=== PATIENT | female | born 1940 | race Caucasian/White ===

== ENCOUNTER 2024-03-06 11:16 | Emergency (ER) | payer MEDICARE, SELFPAY ==
[2024-03-06] VITALS (7 sets, daily range): BP systolic 115–165; BP diastolic 65–97; PULSE 60–75; RESP 14–28; TEMP 36.4; O2SAT 95–99
--- NOTE | 2024-03-06 11:35 | ED.GENADULT ---
HPI - General Adult General Chief complaint: Nausea/Vomiting/Diarrhea Stated complaint: nervous, vomiting Time Seen by Provider: 03/06/24 11:21 History of Present Illness HPI narrative: 83-year-old female with history of chronic kidney disease presents to the emergency department for evaluation for persistent nausea and vomiting since last night. Patient does have dementia at baseline. Upon arrival to the emergency department patient states she has nausea but denies any abdominal pain. Patient states she does have some lower back pain from a fall approximately 6 weeks ago, patient was worked up for this fall and patient is currently doing physical therapy for this. Patient denies any new falls or injuries. Patient was tearful due to anxiety upon arrival. Patient's family is present. Related Data Home Medications Medication Instructions Recorded Confirmed allopurinol 300 mg tablet 300 mg PO DAILY 02/10/23 02/10/23 calcium carbonate (Calcium 600) 600 mg PO DAILY 02/10/23 02/10/23 carvedilol 6.25 mg tablet 6.25 mg PO Q12H 02/10/23 02/10/23 cholecalciferol (vitamin D3) 50 50 mcg PO DAILY 02/10/23 02/10/23 mcg (2,000 unit) capsule (Vitamin D3) empagliflozin 25 mg tablet 25 mg PO DAILY 02/10/23 02/10/23 (Jardiance) glipizide 10 mg tablet 10 mg PO DAILY 02/10/23 02/10/23 levothyroxine 88 mcg capsule 88 mcg PO DAILY 02/10/23 02/10/23 mecobalamin (vitamin B12) 1,000 1,000 mcg sublingual DAILY 02/10/23 02/10/23 mcg disintegrating tablet,sublingual omeprazole 20 mg capsule,delayed 20 mg PO DAILY 02/10/23 02/10/23 release paroxetine HCl 20 mg tablet 20 mg PO DAILY 02/10/23 02/10/23 simvastatin 20 mg tablet 20 mg PO DAILY 02/10/23 02/10/23 verapamil 180 mg 24 hr 180 mg PO DAILY 02/10/23 02/10/23 capsule,extended release Allergies Allergy/AdvReac Type Severity Reaction Status Date / Time No Known Allergies Allergy Verified 03/06/24 11:20 Review of Systems Review of Systems: All systems reviewed & are unremarkable except as noted in HPI and below PMFSH Social History Social History (Updated 02/10/23 @ 11:15 by Teri Pringle MA) Smoking status: Never smoker Lack of Transportation: No Lack of Food: Never True Current Housing: I Have Housing Concerned About Future Housing: No Difficulty Paying Gas/Electric Bills: No Difficulty Paying for Meds: No Currently Unemployed: No Education: High School Diploma/GED Difficulty w/ Childcare or Family Care: No Gender identity (if verbalized by the patient): Female Exam Narrative: APPEARANCE: No distress HEAD: normocephalic, atraumatic. EYES: PERRLA/EOMI, conjunctivae clear. NOSE: Normal no drainage EARS:TMS clear with good light reflex. THROAT: Pharynx clear, no exudate. NECK: Supple. No adenopathy, no masses. RESPIRATORY: Airway patent, respirations nonlabored. Clear to auscultation bilaterally, no rales, rhonchi, wheezing. CARDIOVASCULAR: Regular rate and rhythm without murmurs rubs or gallops. ABDOMINAL: Soft nondistended, normal bowel sounds MUSCULOSKELETAL: Moves all extremities. Strength/ROM intact, No edema, No calf tenderness. NEURO: Alert. Cranial nerves II through XII intact. Grossly intact SKIN: Warm, dry. Normal Color Course Course Emergency Course: Patient felt improved with treatment, patient passed her p.o. challenge and patient was comfortable the plan for discharge home. Vital Signs Vital signs: Vital Signs Temperature 97.6 F 03/06/24 11:21 Pulse Rate 60 03/06/24 11:21 Respiratory Rate 17 03/06/24 11:21 Blood Pressure 165/67 H 03/06/24 11:21 Pulse Oximetry 99 03/06/24 11:21 Oxygen Delivery Room Air 03/06/24 11:21 Temperature 97.6 F 03/06/24 11:21 Pulse Rate 61 03/06/24 15:54 Respiratory Rate 28 H 03/06/24 15:54 Blood Pressure 128/97 H 03/06/24 15:54 Pulse Oximetry 99 03/06/24 15:54 Oxygen Delivery Room Air 03/06/24 11:21 Medical Decision Making [facility] Narr
[2024-03-06 11:39] LABS: Basophils Percent Auto 0.5 % (0.2-1.2); Eosinophils Absolute Auto 0.1 K/mm3 (0-0.3); Eosinophils Percent Auto 2.4 % (0-4.4); Hematocrit 36.3 % (37.0-47.0); Hemoglobin 11.5 g/dL (12.0-15.0); Immature Granulocyte Absolute 0.02 K/mm3 (0.00-0.031); Immature Granulocyte Percent A 0.3 % (0-0.5); Lymphocytes Absolute Auto 1.29 K/mm3 (0.9-3.2); Lymphocytes Percent Auto 22.1 % (18.3-44.2); Mean Corpuscular HGB Conc 31.7 g/dl (32-36); Mean Corpuscular Hemoglobin 28.7 pg (26-34); Mean Corpuscular Volume 90.5 fl (80-100); Mean Platelet Volume 9.6 fl (7.4-10.4); Monocytes Absolute Auto 0.5 K/mm3 (0.1-0.6); Neutrophils Absolute Auto 3.9 K/mm3 (1.3-6.7); Neutrophils Percent Auto 66.7 % (45.5-73.1); Platelet Count Result 150 k/mm3 (150-375); Red Blood Count 4.01 M/mm3 (4.2-5.4); Red Cell Distribution Width 15.4 % (11.5-14.5); White Blood Count 5.8 K/mm3 (4.5-10.0)
[2024-03-06 11:50] LABS: Alanine Aminotransferase 24 U/L (6-35); Alkaline Phosphatase 98 U/L (38-126); Anion Gap 12 mmol/L (4-12); Aspartate Amino Transferase 26 U/L (14-36); Bilirubin,Total 0.6 mg/dL (0.2-1.3); Blood Urea Nitrogen 20 mg/dL (7-17); Calcium 9.6 mg/dL (8.4-10.2); Carbon Dioxide 21 mmol/L (22-30); Chloride 108 mmol/L (98-107); Estimated CRCL calculation 37 ml/min; Estimated Glomerular Filt Rate 47; Glucose 159 mg/dL (65-110); Lipase 65 U/L (23-300); Potassium 4.4 mmol/L (3.4-5.0); Sodium 141 mmol/L (137-145)
[2024-03-06] MEDS: SODIUM CHLORIDE 0.9% IV 1,000 ML 500 ML IV CONT (11:51)
[2024-03-06] MEDS: ONDANSETRON INJ 4 MG/2 ML VIAL IV PUSH (11:54)
[2024-03-06 12:55] LABS: Appearance Urine Clear (Clear); Bacteria Urine None Seen /hpf; Bilirubin Urine Negative (Negative); Blood Urine Negative (Negative); Color Urine Yellow (Yellow); Glucose Urine UA Negative (Negative); Ketones Urine Negative (Negative); Leukocyte Esterase Ur 1+ LEU/UL (Negative); Nitrate Urine Negative (Negative); Non Pathogenic Casts 0-2; Protein Urine Trace mg/dL (Negative); RBC Urine 0-2 /hpf (0-2); Specific Grav Ur 1.016 (1.001-1.035); Squamous Epithelial Cell Urine Few /hpf (Few); Urobilinogen Urine 0.2 mg/dL (<2.0); pH Urine 5.5 (5.0-9.0)
[2024-03-06 13:02] LABS: Add Urine Microscopic? YES
== END 2024-03-06 15:55 | disposition home or self-care (01) ==
PROVIDERS: Emergency Provider Emergency Medicine; PCP Internal Medicine
DX: R11.2 Nausea with vomiting, unspecified (principal); M54.50 Low back pain, unspecified; N18.9 Chronic kidney disease, unspecified
CPT/HCPCS: 36415; 80053; 81001; 83690; 85025; 87081; 87086; 87088; 96361; 96374; 99284; J2405; J7030